=== PATIENT | female | born 1950 | race Caucasian/White ===

== ENCOUNTER → 2021-07-03 | Outpatient (CLI) | payer OTHER | LOC: KOH-I 09:39 → EDBD 09:39 → KOH-I 10:00 | DX: J32.9 Chronic sinusitis, unspecified (principal) | CPT/HCPCS: 70486 ==

== ENCOUNTER → 2021-10-24 | Outpatient (CLI) | payer MEDICARE ==
[2021-10-24 14:09] LABS: HEMOGLOBIN 12.4 gm/dl (12.3-15.3); RED BLOOD COUNT 4.27 M/UL (4.00-5.10)
[2021-10-24 14:26] LABS: BUN/CREATININE RATIO 20 (0-10)
== END ==
LOC: US 13:07
PROVIDERS: Internal Medicine Nephrology
DX: N17.9 Acute kidney failure, unspecified (principal); E87.5 Hyperkalemia; E83.42 Hypomagnesemia
CPT/HCPCS: 36415; 80053; 82570; 83735; 83970; 84100; 84156; 85027

== ENCOUNTER → 2022-03-01 | Outpatient (CLI) | payer MEDICARE ==
[2022-03-01 13:11] LABS: BUN/CREATININE RATIO 13 (0-10)
== END ==
LOC: LAB 11:44
PROVIDERS: Internal Medicine Nephrology
DX: E83.42 Hypomagnesemia (principal); N17.9 Acute kidney failure, unspecified
CPT/HCPCS: 36415; 80053; 82570; 83735; 84156